=== PATIENT | male | born 1995 | race Caucasian/White ===

== ENCOUNTER → 2020-02-24 | Emergency (ER) | payer MEDICAID ==
[~2020-02-24] VITALS: Ht 175.3 cm; Wt 84.1 kg
[2020-02-24 16:45] VITALS: BP 138/81
== END | disposition home or self-care (01) ==
LOC: EMS 16:15
DX: R06.02 Shortness of breath (principal)

== ENCOUNTER 2025-02-26 14:08 | Inpatient (IN) | payer MEDICAID, OTHER ==
[~2025-02-26] VITALS: Ht 175.3 cm; Wt 83.0 kg
[2025-02-26 15:48] LABS: PLATELET COUNT (AUTO) 333 K/uL (150-450); RED BLOOD CELL COUNT(AUTO) 5.72 MIL/uL (4.50-5.90); RED CELL DISTRIBUTION WIDTH 14.2 % (11.5-14.5); WHITE BLOOD COUNT (AUTO) 8.3 K/uL (4.5-11.0)
[2025-02-26 15:56] LABS: CALCIUM, TOTAL 10.0 mg/dL (8.8-10.5); CREATININE 0.95 mg/dL (0.60-1.30); GLOMERULAR FILTR. RATE CALC > 60 mL/min (>60); GLUCOSE,RANDOM 106 mg/dL (70-110); SODIUM SERUM 138 mmol/L (136-145); UREA NITROGEN, BLOOD 8 mg/dL (7-18)
[2025-02-26] MEDS ORDERED: ONDANSETRON HCL 4 MG/2 ML VIAL IVP PRN (18:15)
[2025-02-26 19:30] VITALS: BP 110/74; PULSE 93; RESP 18; TEMP 97.9; O2SAT 100
[2025-02-26] MEDS: ACETAMINOPHEN 325 MG TABLET PO PRN (23:47)
[2025-02-26] MEDS: HEPARIN SODIUM,PORCINE 5,000 UNITS/ML VIAL SQ SCH (23:48)
[2025-02-27 05:00] VITALS: BP 101/69; PULSE 101; RESP 18; TEMP 98.2; O2SAT 100
[2025-02-27 06:52] LABS: PLATELET COUNT (AUTO) 318 K/uL (150-450); RED BLOOD CELL COUNT(AUTO) 5.75 MIL/uL (4.50-5.90); RED CELL DISTRIBUTION WIDTH 14.5 % (11.5-14.5); WHITE BLOOD COUNT (AUTO) 6.7 K/uL (4.5-11.0)
[2025-02-27 06:58] LABS: CALCIUM, TOTAL 9.9 mg/dL (8.8-10.5); CREATININE 1.03 mg/dL (0.60-1.30); GLOMERULAR FILTR. RATE CALC > 60 mL/min (>60); GLUCOSE,RANDOM 101 mg/dL (70-110); SODIUM SERUM 139 mmol/L (136-145); UREA NITROGEN, BLOOD 12 mg/dL (7-18)
[2025-02-27 08:25] VITALS: BP 99/85; PULSE 84; RESP 18; TEMP 98.1; O2SAT 96
[2025-02-27] MEDS: RINGERS SOLUTION,LACTATED 1,000 ML IV ONE (09:04)
== END 2025-02-27 18:12 | disposition left against medical advice (07) | DRG 101 ==
LOC: EMS 14:14 → EDH 17:20 → 6S 18:51
PROVIDERS: ADMIT Internal Medicine; ATTEND Internal Medicine
DX: G40.909 Epilepsy, unspecified, not intractable, without status epilepticus (principal); E86.0 Dehydration; R00.0 Tachycardia, unspecified; Z53.29 Procedure and treatment not carried out because of patient's decision for other reasons
CPT/HCPCS: 80048; 83735; 85025; 99285; G0480; J1644; J7120